=== PATIENT | female | born 1985 | race Two or more races ===

== ENCOUNTER 2019-06-10 10:51 | Emergency (ER) | payer MEDICAID, SELFPAY ==
[2019-06-10 10:52] VITALS: BP 132/71; PULSE 109; TEMP 36.8; O2SAT 97
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
[2019-06-10] MEDS: Acetaminophen 500 MG TAB 1000 MG PO (11:22)
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
[2019-06-10] MEDS: Ibuprofen 600 MG TAB PO (14:01)
[2019-06-10 14:05] VITALS: BP 132/71; PULSE 109; TEMP 36.8; O2SAT 97
== END 2019-06-10 14:08 | disposition home or self-care (01) ==
LOC: ER 14:13
PROVIDERS: Emergency Provider Physician Assistant
DX: S01.411A Laceration without foreign body of right cheek and temporomandibular area, initial encounter (principal); S09.90XA Unspecified injury of head, initial encounter; Y00.XXXA Assault by blunt object, initial encounter; H53.8 Other visual disturbances
CPT/HCPCS: 12013; 81025; 90471; 99284; 70450; 70486; 72125; 99283

== ENCOUNTER 2021-03-22 20:26 | Emergency (ER) | payer MEDICAID, SELFPAY ==
--- NOTE | 2021-03-22 20:30 | RT.EKG_ITS ---
APPROVED REPORT Exam: Resting ECG Reason for Exam: chest pain Patient Location: E HR:79 bpm ECG Measurements Heart Rate 79 AXIS MI 162 P 46 QRSd 94 QRS 34 QT 356 T 52 QTc 408 Conclusion Sinus rhythm...normal P axis, V-rate 60- 99
[2021-03-22 20:38] VITALS: BP 119/101; PULSE 79; RESP 18; TEMP 36.7; O2SAT 99
[2021-03-22 20:42] VITALS: RESP 18
--- NOTE | 2021-03-22 20:45 | DI.CT_ITS ---
Exam(s) CT THORAX CTA EXAM: CT THORAX CTA CLINICAL HISTORY: chest radiating to back pain, ?dissection. TECHNIQUE: Imaging Protocol: CT angiography of the chest was performed using pulmonary embolus jem col. Multi planar reconstructions were performed. CONTRAST MATERIAL: Intravenous: Omnipaque 350 Contrast volume: 100 cc COMPARISON: No exams were available for comparison FINDINGS: CHEST: It appears that the lung apices are not included in the field of view of this study. In addit ion, bolus timing is suboptimal. PULMONARY ARTERIES: There are no obvious intraluminal filling defects to suggest acute pulmonary embo li. LUNGS: There are no infiltrates nor evidence of pulmonary infarction.. There is mild sessile benign-a ppearing pleural thickening over the posterior aspect of the left lower lobe. MEDIASTINUM: There is no hilar nor mediastinal adenopathy. CARDIAC: Heart size is upper normal. There is no pericardial effusion.Caliber of the thoracic aorta is within normal limits. There is no evidence of aortic dissection. There is no significant shift of the interventricular septum. PARTIALLY VISUALIZED UPPERMOST ABDOMEN: Stomach is somewhat distended with ingested material OSSEOUS: No significant osseous lesions.. IMPRESSION: 1. No evidence of acute pulmonary emboli. No evidence of pulmonary infarction.No pleural effusions. 2. Please note that the lung apices were apparently not included in the field of view of this CT stud y and therefore cannot be assessed. 3. No evidence of aortic dissection. No aneurysm Gastric distention RADIATION DOSE DELIVERED: 667.31mGy.cm Total DLP DATA REPOSITORY: All CT scans at this facility are submitted to the National Radiology Data Registry (NRDR) Dose Index Registry (DIR) with the [employer] (ACR). RADIATION OPTIMIZATION: All CT scans at this facility use at least one of these dose optimization te chniques: automated exposure control; mA and/or kV adjustment per patient size (includes targeted exa ms where dose is matched to clinical indication); or iterative reconstruction.
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
[2021-03-22 21:08] LABS: Abs Immature Grans 0.03 10^3/uL (0.0-0.06); Absolute Basophil Count 0.05 10^3/uL (0.0-0.2); Absolute Eosinophil Count 0.36 10^3/uL (0.0-0.7); Absolute Lymphocyte Count 2.97 10^3/uL (1.2-3.4); Absolute Monocyte Count 0.88 10^3/uL (0.1-0.8); Absolute Neutrophil Count 5.51 10^3/uL (1.2-6.7); Basophils % 0.5; Eosinophils % 3.7; HCT 35.9 % (36.0-46.0); HGB 11.9 g/dL (11.2-15.7); Immature Grans % 0.3; Lymphocytes % 30.3; MCH 30.4 pg (27.0-33.0); MCHC 33.1 % (32.0-36.0); MCV 91.6 fL (80-95); MPV 9.6 fL (8.0-11.0); Neutrophils % 56.2; Nucleated RBC 0 %; Platelet Count 348 10^3/uL (130-400); RBC 3.92 10^6/uL (3.93-5.22); RDW 13.3 % (11.7-14.6); RDW-SD 43.2 fL
[2021-03-22 21:25] LABS: ALT 18 U/L (14-59); AST 13 U/L (15-37); Alkaline Phosphatase 90 U/L (46-116); Anion Gap 11.6 mmol/L (3-11); BUN 15 mg/dL (7-18); Bilirubin, Total 0.5 mg/dL (0.2-1.0); CO2 23.4 mmol/L (21.0-32.0); CREATININE 0.9 mg/dL (0.55-1.02); Calcium 8.9 mg/dL (8.5-10.1); Chloride 105 mmol/L (98-107); Glucose 98 mg/dL (74-106); Potassium 3.6 mmol/L (3.5-5.1); Sodium 140 mmol/L (136-145); Total Protein 7.7 g/dL (6.4-8.2); Troponin I < 0.05 ng/mL (<0.06)
[2021-03-22] MEDS: Omnipaque 350 MG/ML 100 ML BTL IJ (21:39)
[2021-03-22] MEDS: LORazepam 2 MG/ML VIAL 1 MG IVP (21:50)
--- NOTE | 2021-03-22 22:48 | DI.VRAD_ITS ---
PROCEDURE INFORMATION: Exam: CTA Chest With Contrast Exam date and time: 03/22/2021 8:59 PM Age: 35 years old Clinical indication: Pain; Radiating TECHNIQUE: Imaging protocol: Computed tomographic angiography of the chest with contrast. 3D rendering (Not supervised by radiologist): MIP and/or 3D reconstructed images were created by the technologist. COMPARISON: CT HEAD CERV SPINE FACIAL WO 06/10/2019 11:28 AM FINDINGS: Pulmonary arteries: The pulmonary arteries are normal in caliber. No evidence of acute pulmonary embolism. Aorta: The aorta is normal without evidence of aneurysmal dilatation, dissection or occlusive disease. Great vessels off aortic arch: The great vessels are normal without evidence of occlusive aneurysmal or dissected disease. Lungs: There is no evidence of focal pulmonary consolidation. No evidence of pulmonary parenchymal inflammatory changes. There is no evidence of pulmonary masses. Pleural spaces: There is no evidence of pneumothorax. There are no pleural effusions present. Heart: The cardiac structures are normal. Mediastinal space: The mediastinal structures are normal. Lymph nodes: There is no evidence of lymphadenopathy. Bones/joints: The spine, sternum, ribs, and pectoral girdles show no evidence of acute abnormality. Soft tissues: There are no soft tissue masses or fluid collections. Other findings: The apical regions of the thorax abdomen excluded from the study. The upper abdominal viscera are unremarkable. IMPRESSION: 1. No evidence of acute pulmonary embolism. 2. The aorta is normal without evidence of aneurysmal dilatation, dissection or occlusive disease. 3. The great vessels are normal without evidence of occlusive aneurysmal or dissected disease. 4. No active cardiopulmonary disease. PROCEDURE INFORMATION: Exam: CT Angiography Abdomen With Contrast Exam date and time: 03/22/2021 8:59 PM Age: 35 years old Clinical indication: Pain; Radiating TECHNIQUE: Imaging protocol: Computed tomographic angiography images of the abdomen with intravenous contrast material. COMPARISON: CT HEAD CERV SPINE FACIAL WO 06/10/2019 11:28 AM FINDINGS: Aorta: The abdominal aorta is widely patent without evidence of significant occlusive or aneurysmal disease. Celiac trunk and mesenteric arteries: The celiac artery is widely patent without evidence of occlusive or aneurysmal disease. Superior mesenteric artery is widely patent without evidence of occlusive or aneurysmal disease.The inferior mesenteric artery is widely patent without evidence of occlusive or aneurysmal disease. Renal arteries: Single renal artery supplies the right kidney, is widely patent, without evidence of significant occlusive or aneurysmal disease. Single renal artery supplies the left kidney, is widely patent, without evidence of significant occlusive or aneurysmal disease. Right iliac arteries: The proximal right common iliac artery artery is widely patent without evidence of significant occlusive or aneurysmal disease. Left iliac arteries: The left common iliac artery artery is widely patent without evidence of significant occlusive or aneurysmal disease. Liver: There are no focal liver lesions present. Gallbladder and bile ducts: The gallbladder is normal. There is no cholelitiasis, wall thickening or pericholecystic fluid to suggest cholecystitis. There is no evidence of intrahepatic or extrahepatic biliary ductal dilation. Pancreas: The pancreas is normal. Spleen: The spleen is normal. Adrenals: The adrenal glands are normal without evidence of mass or enlargement. The adrenal glands are normal. Kidneys and ureters: The kidneys are normal no evidence of nephrolithiasis or hydronephrosis. The ureters are normal caliber and follow a normal caliber and course. Stomach and bowel: The stomach is distended with ingested material. No definitive gastric outlet obstruction. The duodenum is normal. The colonic and small bowel loops visualized are unremarkable. Appendix: The proximal appendix is normal. Lymph nodes: There is no evidence of lymphadenopathy. Intraperitoneal space: There is no free intraperitoneal air. There is no evidence of free intraperitoneal or pelvic fluid. Bones/joints: Unremarkable. No acute fracture. No dislocation. Soft tissues: Unremarkable. IMPRESSION: The stomach is distended with ingested material. No definitive gastric outlet obstruction. Dictated and Authenticated by: Alejandro Jiang MD. Ordering:KWADWO Galvez MD
[2021-03-22] MEDS: LORazepam 1 MG TAB PO (23:07)
[2021-03-22 23:08] VITALS: BP 121/84; PULSE 79; RESP 18; TEMP 36.7; O2SAT 99
== END 2021-03-22 23:10 | disposition home or self-care (01) ==
PROVIDERS: Emergency Provider Emergency Medicine
DX: R07.89 Other chest pain (principal); F41.9 Anxiety disorder, unspecified; Z59.0 Homelessness
CPT/HCPCS: 36415; 71275; 80053; 81025; 93005; 96374; 99285; 83735; 84484; 85025; 93010; 99284; J2060; J3490

== ENCOUNTER 2023-01-14 03:37 | Outpatient (CLI) | payer OTHER, SELFPAY ==
[2023-01-14 11:41] LABS: Glucose,1 Hr (Glucola) 75 mg/dL (80-140)
[2023-01-14 11:52] LABS: Abs Immature Grans 0.02 10^3/uL (0.0-0.06); Absolute Basophil Count 0.02 10^3/uL (0.0-0.2); Absolute Eosinophil Count 0.18 10^3/uL (0.0-0.7); Absolute Lymphocyte Count 1.44 10^3/uL (1.2-3.4); Absolute Monocyte Count 0.48 10^3/uL (0.1-0.8); Absolute Neutrophil Count 5.18 10^3/uL (1.2-6.7); Basophils % 0.3; Eosinophils % 2.5; HCT 34.7 % (36.0-46.0); HGB 11.9 g/dL (11.2-15.7); Immature Grans % 0.3; Lymphocytes % 19.7; MCH 32.1 pg (27.0-33.0); MCHC 34.3 % (32.0-36.0); MCV 94 fL (80-95); MPV 9.6 fL (8.0-11.0); Monocytes % 6.6; Neutrophils % 70.6; Platelet Count 262 10^3/uL (130-400); RBC 3.71 10^6/uL (3.93-5.22); RDW 12.9 % (11.7-14.6); WBC 7.32 10^3/uL (4.4-10.8)
[2023-01-15 09:22] LABS: HIV-1/2 Ag & Ab Screen Negative (Negative)
[2023-01-15 10:02] LABS: Hepatitis C Ab w Rflx HCV PCR Negative (Negative)
[2023-01-15 10:15] LABS: Hepatitis B Surface Ag Negative (Negative)
[2023-01-15 11:06] LABS: Varicella IgG Antibody Positive (See Note)
[2023-01-15 11:14] LABS: Rubella IgG Ab (UVM) Positive (See Note)
[2023-01-17 14:43] LABS: Syphilis IgG w/Reflex Nonreactive (Nonreactive)
== END 2023-01-14 03:38 | disposition home or self-care (01) ==
LOC: LBO 03:37
PROVIDERS: Advanced Practice Midwife; Visit Provider Advanced Practice Midwife
DX: Z34.91 Encounter for supervision of normal pregnancy, unspecified, first trimester (principal); Z34.90 Encounter for supervision of normal pregnancy, unspecified, unspecified trimester
CPT/HCPCS: 36415; 82950; 86787; 86803; 86850; 86900; 86901; 87340; 87389; 85025; 86762; 86780

== ENCOUNTER 2023-01-14 09:18 | Outpatient (REF) | payer OTHER, SELFPAY ==
--- NOTE | 2023-01-14 11:00 | PAPFT_PTH ---
PATIENT: Yocasta Díaz LOC: [facility] U#:[id number] AGE/SX: 37/F ROOM: RE01/14/[address]: Svetlana Hooker : 1985 BED: DIS: 01/14/2023 SPEC #: [id number] RECD: 01/14/23 13:11 STATUS: VICKY REQ #: [id number] RAMAN: 01/14/23 11:[address]: Svetlana Hooker DEPT: [facility] Cytology RECD BY: Keely Gonzalez ENTERED: 01/14/23 13:11 SP TYPE: PAPFT OTHR DR: Grace Local Tissues: 1 - CX/ENDOCX FOR PAP SMEARS Procedures: PAP THIN PREP/UVM Screening HPV DNA PROBE Comments: [id number] (HPV 16 & 18/45)
[2023-01-14 14:17] LABS: *AMPHETAMINES SCREEN URINE Negative (Negative); *BARBITURATES SCREEN URINE Negative (Negative); *BENZODIAZEPINES SCREEN URINE Negative (Negative); Cannabinoids THC Negative (Negative); Cocaine Screen,Urine Negative (Negative); METHADONE URINE SCREEN Negative (Negative); OPIATES URINE SCREEN Negative (Negative); Tricyclic Antidepressants Negative (Negative)
[2023-01-15 14:27] LABS: Chlamydia Result Negative (Negative); GC Result Negative (Negative)
== END 2023-01-14 09:19 | disposition home or self-care (01) ==
LOC: LBN 09:18
PROVIDERS: Advanced Practice Midwife; Visit Provider Advanced Practice Midwife
DX: Z34.91 Encounter for supervision of normal pregnancy, unspecified, first trimester (principal); Z11.3 Encounter for screening for infections with a predominantly sexual mode of transmission; Z12.4 Encounter for screening for malignant neoplasm of cervix; Z3A.12 12 weeks gestation of pregnancy; R87.612 Low grade squamous intraepithelial lesion on cytologic smear of cervix (LGSIL); Z11.51 Encounter for screening for human papillomavirus (HPV); R87.810 Cervical high risk human papillomavirus (HPV) DNA test positive
CPT/HCPCS: 80307; 80348; 87491; 87591; 88142; 87086; 87480; 87510; 87624; 87660

== ENCOUNTER 2023-03-11 11:20 | Outpatient (REF) | payer MEDICAID, SELFPAY | END 2023-03-11 11:21 | disposition home or self-care (01) | LOC: LBN 11:20 | PROVIDERS: Visit Provider Advanced Practice Midwife | DX: O23.592 Infection of other part of genital tract in pregnancy, second trimester (principal); A59.01 Trichomonal vulvovaginitis; Z3A.20 20 weeks gestation of pregnancy | CPT/HCPCS: 87480; 87510; 87660 ==

== ENCOUNTER 2023-03-12 01:27 | Outpatient (CLI) | payer MEDICAID, SELFPAY ==
--- NOTE | 2023-03-12 07:30 | DI.US_ITS ---
Exam(s) US OB 2-3 TRIMESTER W MOD EXAM: US OB 2-3 TRIMESTER W MOD CLINICAL HISTORY: survey,z34.90. TECHNIQUE: Transabdominal obstetrical ultrasound was performed. COMPARISON: US US OB TRANSVAGINAL from 12/30/2022 FINDINGS: There is a single viable intrauterine gestation with cardiac activity identified-142 bpm. Amniotic fluid: There is a normal amount of amniotic fluid. Placental location: The placenta is [id number] 1. The distance from the tip of placenta t o the internal cervical os is 2.6 cm this time ANATOMY: A 3 vessel umbilical cord is seen. A good four-chamber view of the heart was not able to be obtained. Also suboptimal imaging of the pa late. Also need additional extremity imaging. Right and left ventricular outflow tracts were imaged. There are no obvious abnormalities of the spinal column evident. There is no obvious abnormal ity of the anterior abdominal wall. stomach and urinary bladder are identified and there is no evidence of hydronephrosis. No abnormalities of the upper lip region are identified. No evidence of choroid plexus cysts i n the brain. Dating parameters place this at approximately 20 weeks and 6 days gestational age. BPD measures 19 weeks and 4 days HC measures 20 weeks and 5 days AC measures 21 weeks and 3 days FL measures 21 weeks and 5 days Estimated weight is 418 gm-0 pounds, 15 ounces Fetus is at the 72nd percentile on the Hadlock scale. IMPRESSION:: Single viable intrauterine gestation which is approximately 20 weeks and 6 days gestati onal age, implying an DAVID of July 24, 2023. There are no obvious anomalies evident on today's study. However, need additional imaging for b robert visualization of the four-chamber cardiac view and palate imaging and is well as extremit y imaging. The placenta is anterior fundal with no evidence of placenta previa. There is a normal amount of amniotic fluid. DATA REPOSITORY:
== END 2023-03-12 01:47 ==
LOC: DI 01:27
PROVIDERS: Visit Provider Advanced Practice Midwife
DX: Z34.92 Encounter for supervision of normal pregnancy, unspecified, second trimester (principal)
CPT/HCPCS: 76805

== ENCOUNTER 2023-06-25 16:50 | Outpatient (REF) | payer MEDICAID, SELFPAY ==
[2023-06-25 17:27] LABS: *AMPHETAMINES SCREEN URINE Negative (Negative); *BARBITURATES SCREEN URINE Negative (Negative); *BENZODIAZEPINES SCREEN URINE Negative (Negative); Cannabinoids THC Negative (Negative); Cocaine Screen,Urine Negative (Negative); METHADONE URINE SCREEN Negative (Negative); OPIATES URINE SCREEN Negative (Negative)
[2023-06-25 17:29] LABS: Tricyclic Antidepressants Negative (Negative)
[2023-07-02 11:33] LABS: Buprenorphine Negative ng/mL (Cutoff: 5.0); Norbuprenorphine Negative ng/mL (Cutoff: 2.5)
== END 2023-06-25 16:51 | disposition home or self-care (01) ==
LOC: LBN 16:50
PROVIDERS: Visit Provider Obstetrics & Gynecology Gynecology
DX: Z34.93 Encounter for supervision of normal pregnancy, unspecified, third trimester (principal); Z36.85 Encounter for antenatal screening for Streptococcus B; Z3A.35 35 weeks gestation of pregnancy
CPT/HCPCS: 80307; 80348; 87081

== ENCOUNTER → 2023-07-01 01:42 | Outpatient (CLI) | payer MEDICAID, SELFPAY ==
--- NOTE | 2023-07-01 09:00 | DI.US_ITS ---
Exam(s) US OB F/U FACIAL/LVOT/RVOT EXAM: US OB F/U FACIAL/LVOT/RVOT CLINICAL HISTORY: complete LVOT, face and extremity views, Z34.90, O09.30,. TECHNIQUE: Transabdominal obstetrical ultrasound was performed. COMPARISON: US US OB 2-3 TRIMESTER W MOD from 03/12/2023 FINDINGS: There is a single viable intrauterine gestation with cardiac activity identified-145 bpm The fetus is presently in cephalic position . anatomy: palate difficult to visualize due to position Left ventricular outflow tract was visualized. extremities visualize due to gestational age. IMPRESSION:: Viable 3rd trimester gestation, as described above. DATA REPOSITORY:
--- NOTE | 2023-07-01 14:45 | DI.US_ITS ---
Exam(s) US OB WING WEIGHT EXAM: US OB WING WEIGHT CLINICAL HISTORY: f/u from 20w u/s, Z98.891, Z34.90. TECHNIQUE: Transabdominal obstetrical ultrasound was performed. COMPARISON: US US OB F/U FACIAL/LVOT/RVOT from 07/01/2023 FINDINGS: There is a single viable intrauterine gestation with cardiac activity identified-145 bpm The fetus is presently in cephalic position . Amniotic fluid: There is a normal amount of amniotic fluid with an WING of 12.6cm. Placental location: The placenta is anterior fundal, grade 2,with no evidence of placenta previa.Dist ance from the tip of the placenta to the internal cervical os is 11 cm on today's study. Dating parameters place this at approximately 35 weeks and 6 days gestational age, implying DAVID of 07/30/2023.. BPD measures 35 weeks and 2 days HC measures 37 weeks and 0 days AC measures 34 weeks and 5 days FL measures 36 weeks and 4 days Estimated weight is 2702 gm-5 pounds 15 ounces Fetus is at the 24th percentile on the Hadlock scale. IMPRESSION:: Viable 3rd trimester gestation, as described above. DATA REPOSITORY:
== END ==
PROVIDERS: Visit Provider Obstetrics & Gynecology Gynecology
DX: O09.33 Supervision of pregnancy with insufficient antenatal care, third trimester (principal); Z98.891 History of uterine scar from previous surgery
CPT/HCPCS: 76815; 76816

== ENCOUNTER 2023-07-01 04:10 | Outpatient (CLI) | payer MEDICAID, SELFPAY ==
[2023-07-01 16:48] LABS: Glucose,1 Hr (Glucola) 131 mg/dL (80-140)
== END 2023-07-01 04:11 | disposition home or self-care (01) ==
LOC: LBO 04:10
PROVIDERS: Visit Provider Obstetrics & Gynecology Gynecology
DX: O09.30 Supervision of pregnancy with insufficient antenatal care, unspecified trimester (principal); Z98.891 History of uterine scar from previous surgery; Z3A.00 Weeks of gestation of pregnancy not specified
CPT/HCPCS: 36415; 82950

== ENCOUNTER 2023-07-27 02:50 | Outpatient (CLI) | payer MEDICAID, SELFPAY ==
[2023-07-27 12:11] LABS: Abs Immature Grans 0.12 10^3/uL (0.0-0.06); Absolute Basophil Count 0.04 10^3/uL (0.0-0.2); Absolute Lymphocyte Count 1.32 10^3/uL (1.2-3.4); Absolute Monocyte Count 0.78 10^3/uL (0.1-0.8); Absolute Neutrophil Count 6.08 10^3/uL (1.2-6.7); Basophils % 0.5; Eosinophils % 2.3; HCT 35.8 % (36.0-46.0); HGB 12.1 g/dL (11.2-15.7); Immature Grans % 1.4; Lymphocytes % 15.5; MCHC 33.8 % (32.0-36.0); MCV 95 fL (80-95); MPV 8.9 fL (8.0-11.0); Monocytes % 9.1; Neutrophils % 71.2; Platelet Count 218 10^3/uL (130-400); RBC 3.78 10^6/uL (3.93-5.22); RDW 13.8 % (11.7-14.6); RDW-SD 47.9 fL; WBC 8.54 10^3/uL (4.4-10.8)
== END 2023-07-27 02:51 | disposition home or self-care (01) ==
LOC: LBO 02:50
PROVIDERS: Visit Provider Obstetrics & Gynecology
DX: Z01.818 Encounter for other preprocedural examination (principal)
CPT/HCPCS: 36415; 86850; 86900; 86901; 85025

== ENCOUNTER 2023-07-27 11:44 | Inpatient (IN) | payer MEDICAID, SELFPAY ==
[2023-07-28] VITALS (26 sets, daily range): BP systolic 79–114; BP diastolic 58–74; PULSE 68–99; RESP 16–18; TEMP 36.6–36.7; O2SAT 94–100; BMI 43.2
[2023-07-28] MEDS: AZITHROMYCIN 500 MG in Normal Saline 250 ML 250 MG IVPB (07:06)
[2023-07-28] MEDS: Lactated Ringers 1,000 ML 200 ML IV (07:08)
--- NOTE | 2023-07-28 07:08 | ANES.PREOP_ITS ---
General Info Date of Service Date Performed: 07/28/23 Height: 5 ft 5 in Weight: 118 kg Body Mass Index (BMI): 43.2 Surgical Procedure: Operation Date: 07/28/23 07:40 Proposed Procedure Side Surgeon p Repeat Section Kika Vincent DO Meds Allergies and Home Medications Allergies Allergy/AdvReac Type Severity Reaction Status Date / Time No Known Allergies Allergy Unverified 07/27/23 11:22 Home Medication Medication Instructions Recorded vitamin with calcium 1 tab PO DAILY #90 tabs 01/14/23 no.72-iron 27 mg-folic acid 1 mg tablet aspirin 81 mg tablet,delayed 81 mg PO DAILY #45 tabs 02/11/23 release Current Visit Medications: Current Medications Generic Name Dose Route Start Last Admin Trade Name Freq PRN Reason Stop Dose Admin Citric Acid/Sodium Citrate 30 ml 07/27/23 12:00 Sodium Citrate 30 Ml Cup PO PREOP PRANEETH Cefazolin Sodium/Dextrose 2 gm in 50 mls @ 100 mls/hr 07/27/23 11:45 Ancef Duplex IVPB PREOP PRANEETH Azithromycin 500 mg/ Sodium 250 mls @ 250 mls/hr 07/27/23 11:45 Chloride IVPB PREOP PRANEETH Ringer's Solution 1,000 mls @ 200 mls/hr 07/27/23 11:45 IV INFUSION PRANEETH IV Miscellaneous Supplies 1 each 07/27/23 11:45 Iv Access IV DIRECTED PRANEETH Sodium Chloride 0 ml 07/27/23 11:44 Normal Saline Flush 10 Ml Syr IVP PRN PRN PFSH Active Problems Active Problems: Problem Status Onset Code Limited care O09.30 LGSIL on Pap smear of cervix R87.612 Marijuana use F12.90 Trichomonal vaginitis during O23.599, A59.01 BMI 34.0-34.9,adult Z68.34 Previous section Z98.891 Advanced maternal age (AMA) in Housing instability, currently housed, at risk for homelessness Z59.811 Other specified counseling Z71.89 Z34.90 Chest pain R07.9 Anxiety F41.9 Medical History Medical History (Updated 06/29/23 @ 08:56 by Greer Rdz MD) Pap smear abnormality of cervix colposcopy 2003 No significant past medical history Surgical History Surgical History (Updated 01/14/23 @ 08:32 by Svetlana Hooker CNM) No significant past surgical history Tobacco Smoking/Tobacco Use Status: Never Alcohol Alcohol Intake: current Alcohol intake frequency: holidays/special occasions only Alcohol type: wine Substance Use Substance use: Daily Substance use type: marijuana Prental History History 5 Para 2 Hx # Term Pregnancies 2 Multiple births Hx # Pregnancies Ectopic pregnancies AB induced Hx Number of Living Children 2 AB spontaneous 1 Past Pregnancies Del. Date GA/Weeks # Preg Succ Route Wgt Sex Labor Lgth Anesth esia Location [facility] 02/28/04 38 No Yes vaginal 2721.554 g Female 3-4 [facility] 09/13/14 41 Yes Yes 2948.35 g Female long labor, [facility] 03/27/22 10 No Delivery Date: 02/28/04 Last Updated by: Svetlana Hooker CNM raised by her grandmother Delivery Date: 09/13/14 Last Updated by: Svetlana Hooker CNM for FTP, currently in the custody of her grandparents Delivery Date: 03/27/22 Last Updated by: Svetlana Hooker CNM SAB, no complications. Vital Signs and Lab Results Vital Signs Most Recent Vital Signs in EMR: Most Recent Vital Signs Temp Pulse BP Pulse Ox 36.7 C 99 H 108/58 L 97 07/28/23 06:37 07/28/23 06:38 07/28/23 06:35 07/28/23 06:38 Lab Results Blood Type / Crossmatch: Patient ABO/Rh A Positive 07/27/23 Antibody Screen NEGATIVE 07/27/23 Complete Blood Count: White Blood Count 8.54 10^3/uL (4.4-10.8) 07/27/23 12:00 Red Blood Count 3.78 10^6/uL (3.93-5.22) L 07/27/23 12:00 Hemoglobin 12.1 g/dL (11.2-15.7) 07/27/23 12:00 Hematocrit 35.8 % (36.0-46.0) L 07/27/23 12:00 Platelet Count 218 10^3/uL (130-400) 07/27/23 12:00 Complete Metabolic Panel: No Data to Display Liver Function Panel: No Data to Display Coagulation Panel: No Data to Display Cardiac Panel: No Data to Display Arterial Blood Gas: No Data to Display Venous Blood Gas: No Data to Display Pancreas Panel: No Data to Display Thyroid Panel: No Data to Display Infectious Disease: No Data to Display Blood Cultures: No Data to Display Toxicology Panel: No Data to Display Panel: No Data to Display Anesthesia Assessment and Plan Anesthesia History Personal History: No History of Anesthesia Complications Family History: No Family History of Anesthesia Complications Exercise Tolerance Exercise Tolerance: Metabolic Equivalents>4 Pertinent Negatives Pertinent Negatives: No Symptoms of GERD, No Major Cardiovascular Symptoms or Complaints and No Major Pulmonary Symptoms or Complaints Cardiac & Pulmonary Exam Cardiac Exam: Normal S1/S2 Heart Sounds Pulmonary Exam: Clear Bilateral Breath Sounds Implantable Cardiac Device Does patient have a Pacemaker or an ICD?: No Airway Exam Known Difficult Airway: No Mallampati Class: 2 Mouth Opening: Normal (> 3cm) Thyromental Distance: Greater than 3 cm Neck Range of Motion: Full ROM Neck Circumference: Normal Teeth Condition: Normal Dentition ASA Classification ASA Score: ASA 3 Emergency Case?: No NPO Status NPO Status: NPO Clears >2 hours, Solids >8 hours Status Status: Confirmed Anesthesia Plan Resuscitation Status: Full Code Anesthesia Technique: Spinal Anesthesia Airway Planned: Natural Airway Pain Management: Intrathecal Analgesia Monitors Used: Standard Monitors
[2023-07-28] MEDS: Sodium Citrate 30 ML CUP PO (07:30)
[2023-07-28] MEDS: ceFAZolin 2 GM/50 ML BAG IVPB (07:44)
[2023-07-28] MEDS: Bupivacaine 0.25% Pres-Free 30 ML VIAL (08:13)
--- NOTE | 2023-07-28 08:51 | PDOC.OPNB_ITS ---
Date of service: 07/28/23 Time of Service: 08:51 Operative Note Operative Note Delivery Method: Scheduled and Repeat Previous LT Incision: Yes DATE OF PROCEDURE: 07/28/23 PRE-OP DIAGNOSES: at 40 weeks and 3 days, prior section, declines trial of POST-OP DIAGNOSES: same Delivery of viable male PROCEDURE: Repeat low-transverse section SURGEON: Kika Vincent Assisting Surgeon: Greer Rdz Anesthesia: regional and spinal Estimated blood loss (mL): 500 Pathology: none sent Complications: None Patient was transported to: floor Patient's condition: stable Indications: at 40 weeks and 3 days, prior section Findings: Normal-appearing tubes, ovaries, uterus. Delivery of viable male . Procedure Description: After full informed consent was obtained, patient was taken the operating suite with an IV running. She was placed in the seated position and spinal anesthesia administered. She was then placed in dorsal supine position with leftward tilt and anesthesia was noted to be adequate. At this point she had a vaginal preparation and abdominal preparation and Olson catheter was inserted for continuous bladder drainage. She had pneumatic compression stockings for DVT prophylaxis, and received Ancef and Zithromax for surgical site infection prophylaxis. At this point a Pfannenstiel skin incision was made through her previous scar and carried down to the underlying fascia. The fascia was then nicked in the midline and the fascial incision extended laterally. The rectus muscles were identified and split in the midline. The peritoneum was identified tented up and entered sharply and there was noted to be adhesions of the omentum to the anterior abdominal wall which were meticulously dissected away. At this point the bladder blade was inserted and the vesicouterine peritoneum identified and a bladder flap created with meticulous dissection. A low transverse uterine incision was made and extended bluntly laterally. There was artificial rupture of membranes for clear fluid. The vertex was delivered through the incision. There was nuchal cord noted x3 which was easily reduced. Shoulders followed with ease and a three-vessel cord was noted clamped x2 and cut and the was then handed off to the waiting drapery rod assembler. At this point cord blood sample was obtained. The placenta was manually expressed from the uterus and the uterus exteriorized and cleared of all clot and debris. The uterine incision was then closed in a 2 layer closure using 0 Monocryl suture with the first layer being running locked second being imbricating. The uterus was returned to the abdomen and the uterine incision inspected and noted to be hemostatic. The abdomen was irrigated with copious months of normal saline and again uterine incision noted to be hemostatic. Fascial incision was then closed using 0 Vicryl suture in a running fashion. Subcutaneous tissue irrigated with copious months of normal saline and the subcu space reapproximated with simple interrupted sutures. The subcuticular space was then closed with 4-0 undyed Monocryl in a subcuticular fashion. Steri- Strips and a Mepilex dressing were then placed. The patient was taken to the center in stable condition with a Olson catheter draining clear yellow urine. Complications: None apparent Fluids: Crystalloid per anesthesia Pathology: None sent Findings: Normal-appearing tubes, ovaries, uterus. Adhesions of the omentum to the anterior abdominal wall, meticulously dissected. Delivery of a viable male . EBL: 500 mL
[2023-07-28] MEDS: Oxytocin/Normal Saline 30 UNIT/500 ML BAG 334 UNITS IV (09:05)
[2023-07-28] MEDS: Lactated Ringers 1,000 ML 120 ML IV (11:28)
[2023-07-28] MEDS: Ketorolac 30 MG/ML VIAL 15 MG IVP ×2 (13:59→20:04)
[2023-07-28] MEDS: Naloxone 0.4 MG/ML VIAL IVP (14:04)
--- NOTE | 2023-07-28 15:29 | W.PM.OBPNV1 ---
Date of service: 07/28/23 Time of Service: 15:29 Assessment and Plan Assessment and plan (1) Status post repeat low transverse section: Status: Acute Assessment and plan: Postoperative day #0. Doing well. Anticipate routine postoperative care. Exam Physical Exam Vital signs: Temp Pulse Resp BP Pulse Ox 98.1 F 80 16 114/73 99 07/28/23 11:30 07/28/23 13:00 07/28/23 15:00 07/28/23 13:00 07/28/23 13:00 Narrative: Patient seen and examined postoperative day 0. Doing well. Pain well controlled. Tolerating regular diet. Stable vital signs. Appropriate urine output. We will continue routine and postoperative care
[2023-07-28] MEDS: Acetaminophen 325 MG TAB 650 MG PO (17:26)
[2023-07-28] MEDS: Lactated Ringers 1,000 ML 150 ML IV (21:20)
[2023-07-29] VITALS (12 sets, daily range): BP systolic 101–109; BP diastolic 66–78; PULSE 74–88; RESP 16–18; TEMP 36.6; O2SAT 98–100
[2023-07-29] MEDS: Ketorolac 30 MG/ML VIAL 15 MG IVP (02:09)
[2023-07-29] MEDS: Lactated Ringers 1,000 ML 150 ML IV (03:36)
[2023-07-29] MEDS: Acetaminophen 325 MG TAB 650 MG PO ×2 (03:36→08:30)
[2023-07-29 06:50] LABS: Abs Immature Grans 0.07 10^3/uL (0.0-0.06); Absolute Basophil Count 0.03 10^3/uL (0.0-0.2); Absolute Eosinophil Count 0.18 10^3/uL (0.0-0.7); Absolute Lymphocyte Count 1.37 10^3/uL (1.2-3.4); Absolute Monocyte Count 0.64 10^3/uL (0.1-0.8); Absolute Neutrophil Count 5.68 10^3/uL (1.2-6.7); Basophils % 0.4; Eosinophils % 2.3; HCT 29.4 % (36.0-46.0); Immature Grans % 0.9; Lymphocytes % 17.2; MCH 32.8 pg (27.0-33.0); MCV 96 fL (80-95); MPV 9.1 fL (8.0-11.0); Neutrophils % 71.2; Platelet Count 182 10^3/uL (130-400); RBC 3.05 10^6/uL (3.93-5.22); RDW 14.1 % (11.7-14.6); RDW-SD 49.6 fL; WBC 7.97 10^3/uL (4.4-10.8)
--- NOTE | 2023-07-29 07:56 | W.PM.OBPNV1 ---
Date of service: 07/29/23 Time of Service: 07:56 Assessment and Plan Assessment and plan (1) Status post repeat low transverse section: Status: Acute Assessment and plan: Postop day #1 status post repeat low transverse section. Doing well. Vital feeding without difficulty. Would anticipate discharge home tomorrow if stable. Hemoglobin postoperatively is stable at 10.0. Subjective Subjective Interval history: Patient seen and examined this morning. Doing well. Pain is well controlled. Tolerating regular diet. Voiding without difficulty. Patient is bottlefeeding. [place] baby status: Doing well, Bottle feeding well and Strong Bonding Observed [place] feeding status: Exclusively formula feeding Exam Physical Exam Vital signs: Temp Pulse Resp BP Pulse Ox 97.9 F 84 16 109/66 99 07/28/23 20:07 07/29/23 02:05 07/29/23 06:00 07/29/23 02:05 07/28/23 20:07 Vital Signs Reviewed: Yes Constitutional Constitutional: no acute distress HEENT Exam HEENT Exam: Normal Neck Exam Neck Exam: Normal Respiratory Exam Respiratory Exam: Normal Cardiovascular Exam Cardiovascular Exam: Normal Abdominal Exam Abdomen: Tender Comments: Incision dressed. Mepilex in place Fundal Exam Fundus: Below Umbilicus and Firm Extremities Exam Extremity Exam: Normal; negative Calf Tenderness or Edema Skin Exam Skin Exam: Normal Neurological Exam Neurological Exam: Normal Psychiatric Exam Psychiatric Exam: Normal Results Hemoglobin/Hematocrit: Hgb 10.0 g/dL (11.2-15.7) L D 07/29/23 06:30 Hct 29.4 % (36.0-46.0) L 07/29/23 06:30 Abnormal Lab Findings: Abnormal Labs 07/29/23 06:30 RBC 3.05 L Hgb 10.0 L D Hct 29.4 L MCV 96 H
[2023-07-29] MEDS: Docusate Sodium 100 MG CAP PO (08:30)
[2023-07-29] MEDS: Ibuprofen 600 MG TAB PO ×3 (08:30→20:20)
[2023-07-29] MEDS: oxyCODONE 5 mg/Acetaminophen 325 mg TAB PO ×2 (13:05→17:19)
--- NOTE | 2023-07-29 13:25 | W.ANESPOSTOP ---
Postoperative Evaluation Date, Time and Location Date Performed: 07/29/23 Time Performed: 13:25 Patient Location: Obstetrics Vital Signs Most Recent Imported Vital Signs: Most Recent Vital Signs Temp Pulse Resp BP Pulse Ox 36.6 C 74 16 101/78 100 07/29/23 08:00 07/29/23 08:00 07/29/23 08:00 07/29/23 08:00 07/29/23 08:00 Pain Score Most Recent Pain Score: Most Recent Pain Score Pain Level [Abdomen] 3 07/29/23 08:00 Pain Level 3 07/29/23 08:30 Assessment Mental Status: Awake (Alert & Oriented to Patient Baseline) Airway and Respiratory Function: Patent airway with normal (patient baseline) respiratory exam Cardiovascular Function: Hemodynamically Stable Hydration Status: Adequately Hydrated Nausea & Vomiting: No Nausea or Vomiting Pain: Pain is tolerable per patient Peripheral Nerve Block: Patient did not receive a nerve block
[2023-07-30 03:30] VITALS: BP 115/72; PULSE 82; RESP 17; TEMP 36.6; O2SAT 98
[2023-07-30] MEDS: oxyCODONE 5 mg/Acetaminophen 325 mg TAB PO ×2 (06:26→12:34)
[2023-07-30] MEDS: Ibuprofen 600 MG TAB PO ×2 (06:27→12:35)
[2023-07-30 08:00] VITALS: BP 114/78; PULSE 76; RESP 18; TEMP 36.6; O2SAT 97
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
== END 2023-07-30 13:50 | disposition home or self-care (01) | DRG 788 ==
PROVIDERS: Admitting Provider Obstetrics & Gynecology; Visit Provider Obstetrics & Gynecology
PROC: 10D00Z1 Extraction of Products of Conception, Low, Open Approach (ICD-10-PCS; CPT 59514; principal; 2023-07-28 07:30)
DX: O34.211 Maternal care for low transverse scar from previous cesarean delivery (principal); N85.8 Other specified noninflammatory disorders of uterus; Z37.0 Single live birth; O99.344 Other mental disorders complicating childbirth; F41.9 Anxiety disorder, unspecified; Z3A.40 40 weeks gestation of pregnancy; R87.612 Low grade squamous intraepithelial lesion on cytologic smear of cervix (LGSIL); O75.89 Other specified complications of labor and delivery; O69.81X0 Labor and delivery complicated by cord around neck, without compression, not applicable or unspecified
CPT/HCPCS: 59514; 36415; 85025; J0456; J0690; J1885; J2310; J2371; J2405; J3010

== ENCOUNTER 2023-11-19 15:28 | Outpatient (REF) | payer MEDICAID, SELFPAY | END 2023-11-19 15:29 | disposition home or self-care (01) | LOC: LBN 15:28 | PROVIDERS: Visit Provider Physician Assistant Medical | DX: J02.9 Acute pharyngitis, unspecified (principal) | CPT/HCPCS: 87070 ==

== ENCOUNTER 2024-03-30 13:20 | Emergency (ER) | payer MEDICAID, SELFPAY ==
[2024-03-30 13:25] VITALS: BP 155/91; PULSE 92; RESP 16; TEMP 36.3; O2SAT 96
[2024-03-30 13:29] VITALS: BP 155/91; PULSE 92; RESP 16; TEMP 36.3; O2SAT 95
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
== END 2024-03-30 14:12 | disposition home or self-care (01) ==
PROVIDERS: Emergency Provider Physician Assistant
DX: J06.9 Acute upper respiratory infection, unspecified (principal); H66.91 Otitis media, unspecified, right ear
CPT/HCPCS: 99283; 99284

== ENCOUNTER 2025-07-18 11:53 | Emergency (ER) | payer SELFPAY ==
[2025-07-18 11:30] VITALS: BP 134/81; PULSE 98; RESP 18; TEMP 36.7; O2SAT 98
[2025-07-18 12:41] LABS: Abs Immature Grans 0.03 10^3/uL (0.0-0.06); HCT 36.8 % (36.0-46.0); HGB 12.5 g/dL (11.2-15.7); Immature Grans % 0.4 %; MCH 31.3 pg (27.0-33.0); MCHC 34.0 % (32.0-36.0); MCV 92 fL (80-95); MPV 9.5 fL (8.0-11.0); Platelet Count 349 10^3/uL (130-400); RBC 4.00 10^6/uL (3.93-5.22); RDW 13.3 % (11.7-14.6); RDW-SD 44.5 fL; WBC 7.80 10^3/uL (4.4-10.8)
[2025-07-18 12:59] LABS: Glucose Negative (Negative)
[2025-07-18 13:08] LABS: C & S Indicated? No; WBC Negative HPF (0-5)
[2025-07-18 13:24] LABS: ALT 60 U/L (14-59); AST 49 U/L (15-37); Albumin 4.2 g/dL (3.4-5.0); Alkaline Phosphatase 123 U/L (46-116); Anion Gap 11.7 mmol/L (3-11); BUN 18 mg/dL (7-18); Bilirubin, Total 0.6 mg/dL (0.2-1.0); CO2 26.3 mmol/L (21.0-32.0); Calcium 9.6 mg/dL (8.5-10.1); Chloride 103 mmol/L (98-107); Estimated GFR 114.16 (mL/min/1.73m2); Glucose 92 mg/dL (74-106); Magnesium 1.8 mg/dL (1.8-2.4); Potassium 3.2 mmol/L (3.5-5.1); Sodium 141 mmol/L (136-145); TSH (W/Ref FT4) 1.68 uIU/mL (0.36-3.74); Total Protein 8.2 g/dL (6.4-8.2)
[2025-07-18 13:48] LABS: Cannabinoids THC Positive (Negative); METHADONE URINE SCREEN Negative (Negative)
--- NOTE | 2025-07-18 14:01 | CMPROGNOTE_ITS ---
Date of service: 07/18/25 Time of Service: 14:05 Care Management Progress Note Progress Note Text Progress Note Text: CM huddled with Fei B RN, Fei B NATIVIDAD, poly area supervisor, and [facility] Per and Shar surrounding Yocasta's plan of care. Yocasta was sitting in her room and engaged appropriately. Per [facility], Yocasta is experiencing auditory hallucinations. She was assessed by [facility] who reports she will be safety planned home and is agreeable to a follow up check in on Wednesday. [facility] reports Yocasta declined doing intake for services. CM sent a referral to [facility] for Yocasta to obtain insurance. CM will continue to follow. Social Determinants of Health Screening Will the Patient Participate in the Screening?: Declined to provide
--- NOTE | 2025-07-18 14:01 | CMSP_ITS ---
Date of service: 07/18/25 Time of Service: 14:03 Care Management Safety Plan Status Status: Voluntary Reason for Wait Reason for Wait: Assessment/Screening Safety Plan Safety Plan: VOLUNTARY FOR INPATIENT PSYCHIATRIC STABILIZATION.? Patient is appropriate in all interactions since arriving at [facility]; Pt has demonstrated appropriate coping and communication skills, has articulated his or her needs and concerns and is fully engaged during staff interactions. Safety plan has been established with patient, and care team, to adhere to patient goals, identify restrictions based on behavioral status, address nutrition, and determine allowed personal belongings, tools for hygiene and personal care. Determine level of activity including ambulation, level of sup ervision, visitors, and determine privileges based on behaviors and level of engagement by pt. VOLUNTARY SAFETY PLAN: 1. Will remain on suicide precautions, in paper clothes 2. Will remain in Zone B under direct supervision of one-on-one staff at all times provided by [employer]; NATIVIDAD, RESIDENTIAL SUBCONTRACTOR precision lathe operator. 3. May have paper cups, plates, finger foods as well as a cardboard spoon with which to eat meals. 4. Follow [facility] Management of the Admitted Behavioral Health Patient policy. 5. Shower available in Zone B without restriction. 6. Personal belongings-soft items permitted at RN discretion. 7. Visitors-none at this time. 8. Activities: soft cart items, hospital tablets (Netflix/[place]eland+/music) approved per RN discretion. 9.? Bathroom available in Zone B without restriction. 10. Phone: limited to [facility] cordless phone at RN discretion. Due to VOLUNTARY status, if patient wishes to leave [facility], staff will contact [facility] Crisis Screener ([phone]) and Color Worker ([phone]) as soon as possible. In the event of elopement, notify [facility] Police ([phone]). Patient is currently voluntarily at [facility] and seeking inpatient admission when a bed becomes available. [facility] Frontline Field Services Director will continue seeking placement. Please contact the Color Worker ([phone]) and [facility] Field Services Director ([phone]) for any needed changes in the Safety Plan. Safety plan has been provided to interdepartmental care team.
--- NOTE | 2025-07-18 14:01 | PDOC.CMSAFE ---
Date of service: 07/18/25 Time of Service: 14:03 Care Management Safety Plan Status Status: Voluntary Reason for Wait Reason for Wait: Assessment/Screening Safety Plan Safety Plan: VOLUNTARY FOR INPATIENT PSYCHIATRIC STABILIZATION.? Patient is appropriate in all interactions since arriving at [facility]; Pt has demonstrated appropriate coping and communication skills, has articulated his or her needs and concerns and is fully engaged during staff interactions. Safety plan has been established with patient, and care team, to adhere to patient goals, identify restrictions based on behavioral status, address nutrition, and determine allowed personal belongings, tools for hygiene and personal care. Determine level of activity including ambulation, level of supervision, visitors, and determine privileges based on behaviors and level of engagement by pt. VOLUNTARY SAFETY PLAN: 1. Will remain on suicide precautions, in paper clothes 2. Will remain in Zone B under direct supervision of one-on-one staff at all times provided by [employer]; NATIVIDAD, JOURNEY LINEMAN steam plant records clerk. 3. May have paper cups, plates, finger foods as well as a cardboard spoon with which to eat meals. 4. Follow [facility] Management of the Admitted Behavioral Health Patient policy. 5. Shower available in Zone B without restriction. 6. Personal belongings-soft items permitted at RN discretion. 7. Visitors-none at this time. 8. Activities: soft cart items, hospital tablets (Netflix/[place]+/music) approved per RN discretion. 9.? Bathroom available in Zone B without restriction. 10. Phone: limited to [facility] cordless phone at RN discretion. Due to VOLUNTARY status, if patient wishes to leave [facility], staff will contact [facility] Crisis Screener ([phone]) and Blending Technician ([phone]) as soon as possible. In the event of elopement, notify [facility] Police ([phone]). Patient is currently voluntarily at [facility] and seeking inpatient admission when a bed becomes available. [facility] Frontline Information Technology Intern will continue seeking placement. Please contact the Blending Technician ([phone]) and [facility] Information Technology Intern ([phone]) for any needed changes in the Safety Plan. Safety plan has been provided to interdepartmental care team.
--- NOTE | 2025-07-18 14:01 | PDOC.CMPRO ---
Date of service: 07/18/25 Time of Service: 14:05 Care Management Progress Note Progress Note Text Progress Note Text: CM huddled with Fei B RN, Fei B NATIVIDAD, microwave supervisor, and [facility] Per and Shar surrounding Yocasta's plan of care. Yocasta was sitting in her room and engaged appropriately. Per [facility], Yocasta is experiencing auditory hallucinations. She was assessed by [facility] who reports she will be safety planned home and is agreeable to a follow up check in on Wednesday. [facility] reports Yocasta declined doing intake for services. CM sent a referral to [facility] for Yocasta to obtain insurance. CM will continue to follow. Social Determinants of Health Screening Will the Patient Participate in the Screening?: Declined to provide
[2025-07-18] MEDS: Potassium Chloride 20 MEQ TABCR 40 MEQ PO (15:17)
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
== END 2025-07-18 15:51 | disposition home or self-care (01) ==
PROVIDERS: Emergency Provider Physician Assistant; PCP Nurse Practitioner
DX: R74.01 Elevation of levels of liver transaminase levels (principal); E87.6 Hypokalemia; F39 Unspecified mood [affective] disorder; F17.210 Nicotine dependence, cigarettes, uncomplicated
CPT/HCPCS: 36415; 80053; 80307; 81025; 99283; 80320; 81003; 81015; 83735; 84443; 85025